=== PATIENT | male | born 1975 | race Caucasian/White ===

== ENCOUNTER 2020-09-17 10:38 | Emergency (ER) | payer OTHER ==
--- NOTE | 2020-09-17 11:49 | RAD REPORT ---
EXAM DESCRIPTION: RAD - Knee Right 3 View - 09/17/2020 11:06 am CLINICAL HISTORY: PAIN, fall COMPARISON: No comparisonsdelete select FINDINGS: No fracture, dislocation or periosteal reaction.No joint effusion seen. No joint space jasson rowing. Small bone density near the quadriceps attachment to the patella is not an acute finding. IMPRESSION: Negative right knee for acute bone or joint finding. Clinical concerns for internal derangement or occult bony injury could be further assessed with MR im aging.
--- NOTE | 2020-09-17 12:15 | ER ---
Nurse's Notes [facility] Name: Pankaj Castaneda Age: 45 yrs Sex: Male : 1975 Arrival Date: 09/17/2020 Time: 10:40 Bed 24 Private MD: Diagnosis: Pain in right knee Presentation: 09/17 10:40 Chief complaint: Patient states: fell going up some stairs and hit knee right on the aa5 edge of the step. Pt c/o right knee pain. 10:40 Coronavirus screen: At this time, the client does not indicate any symptoms associated aa5 with coronavirus-19. Ebola Screen: Patient negative for fever greater than or equal to 101.5 degrees Fahrenheit, and additional compatible Ebola Virus Disease symptoms. Initial Sepsis Screen: Does the patient meet any 2 criteria? No. Patient's initial sepsis screen is negative. Does the patient have a suspected source of infection? No. Patient's initial sepsis screen is negative. Risk Assessment: Do you want to hurt yourself or someone else? Patient reports no desire to harm self or others. Onset of symptoms was September 17, 2020. 10:40 Acuity: STEPH 4 aa5 10:40 Method Of Arrival: EMS: [facility] aa5 Historical: - Allergies: 10:40 Iodine; aa5 10:40 SHELLFISH; aa5 10:40 Narcotics (Combative); aa5 - PMHx: 10:40 Previous drug use; aa5 - PSHx: 10:40 Hernia repair; aa5 - Immunization history:: Adult Immunizations unknown. - Social history:: Smoking status: Patient denies any tobacco usage or history of. Screenin:40 Abuse screen: Denies threats or abuse. Nutritional screening: No deficits noted. aa5 Tuberculosis screening: No symptoms or risk factors identified. 10:40 Fall Risk None identified. aa5 Assessment: 10:40 General: Appears comfortable, Behavior is calm, cooperative. Pain: Complains of pain in aa5 right knee Pain currently is 6 out of 10 on a pain scale. Quality of pain is described as sharp, Pain began post fall today Is continuous, Aggravated by repositioning. Neuro: Level of Consciousness is awake, alert, obeys commands, Oriented to person, place, time, situation. Cardiovascular: Patient's skin is warm and dry. Respiratory: Airway is patent Respiratory effort is even, unlabored, Respiratory pattern is regular, symmetrical. GI: Abdomen is obese. : No signs and/or symptoms were reported regarding the genitourinary system. EENT: No signs and/or symptoms were reported regarding the EENT system. Derm: Skin is pink, warm \T\ dry. Musculoskeletal: Reports pain in right knee. Vital Signs: 10:40 BP 153 / 108; Pulse 77; Resp 16 S; Temp 98.2(TE); Pulse Ox 96% on R/A; aa5 ED Course: 10:40 Patient arrived in ED. aa5 10:40 Arm band placed on. aa5 10:40 Patient has correct armband on for positive identification. Bed in low position. Call aa5 light in reach. Side rails up X2. Pulse ox on. NIBP on. 10:41 Mahnaz Welch FNP-C is PHCP. kb 10:41 Antonio Power MD is Attending Physician. kb 10:[address], RN is Primary Nurse. aa5 11:06 Knee Right 3 View XRAY In Process Unspecified. EDMS 11:53 Triage completed. aa5 12:42 No provider procedures requiring assistance completed. Patient did not have IV access zb during this emergency room visit. 12:44 Primary Nurse role handed off by Joie Lane RN zb 12:44 Joie Hobson, DESTINEE is Primary Nurse. zb Administered Medications: 10:43 Not Given (Patient Refused): Ibuprofen 800 mg PO once aa5 Outcome: 12:15 Discharge ordered by MD. kb 12:43 Discharged to home with crutches. zb 12:43 Condition: stable 12:43 Discharge instructions given to patient, Instructed on discharge instructions, follow up and referral plans. medication usage, Demonstrated understanding of instructions, follow-up care, medications, Prescriptions given X 1. 12:44 Patient left the ED. zb Signatures: Dispatcher [employer] EDNH Mahnaz Welch FNP-C FNP-Joie Ware RN RN aa5 Brown, Zipporah, RN RN zb
--- NOTE | 2020-09-17 12:15 | EDPHYS ---
Physician Documentation [facility] Name: Pankaj Castaneda Age: 45 yrs Sex: Male : 1975 Arrival Date: 09/17/2020 Time: 10:40 Bed 24 Private MD: ED Physician Antonio Power HPI: 09/17 14:51 This 45 yrs old Male presents to ER via EMS with complaints of Knee Pain. kb 14:51 The patient presents with decreased range of motion, an injury, pain, swelling, kb tenderness. The complaints affect the right knee. Context: The problem was sustained outdoors, resulted from the patient falling, the patient is not able to bear weight, the patient is not able to ambulate, Problem is a result from a previous injury: No. Onset: The symptoms/episode began/occurred today. Modifying factors: The symptoms are alleviated by nothing. the symptoms are aggravated by movement, weight bearing, bending knee. Associated signs and symptoms: Pertinent positives: swelling, Pertinent negatives calf tenderness, fever, nausea, numbness, rash, tingling, vomiting, warmth, weakness. Treatment prior to arrival includes: no previous treatment. Severity of symptoms: At their worst the symptoms were moderate, in the emergency department the symptoms are unchanged. The patient has not experienced similar symptoms in the past. The patient has not recently seen a physician. Pt fell on a dock and knee hit an edge causing pain to knee. Historical: - Allergies: 10:40 Iodine; aa5 10:40 SHELLFISH; aa5 10:40 Narcotics (Combative); aa5 - PMHx: 10:40 Previous drug use; aa5 - PSHx: 10:40 Hernia repair; aa5 - Immunization history:: Adult Immunizations unknown. - Social history:: Smoking status: Patient denies any tobacco usage or history of. ROS: 14:49 Constitutional: Negative for fever, chills, and weight loss, Respiratory: Negative for kb shortness of breath, cough, wheezing, and pleuritic chest pain, Skin: Negative for injury, rash, and discoloration, Neuro: Negative for headache, weakness, numbness, tingling, and seizure. 14:49 MS/extremity: Positive for contusion, decreased range of motion, pain, swelling, tenderness, of the right knee. Exam: 14:49 Constitutional: This is a well developed, well nourished patient who is awake, alert, kb and in no acute distress. Head/Face: Normocephalic, atraumatic. Respiratory: Respirations even and unlabored. No increased work of breathing, no retractions or nasal flaring. Skin: Warm, dry with normal turgor. Normal color. Neuro: Awake and alert, GCS 15, oriented to person, place, time, and situation. Moves all extremities. Normal gait. 14:49 Musculoskeletal/extremity: Extremities: grossly normal except: noted in the right knee: decreased ROM, pain, swelling, tenderness, ROM: limited active range of motion, in the right knee, limited active range of motion due to pain, in the right knee, Circulation is intact in all extremities. Sensation intact. Weight bearing: is unable to bear weight. Vital Signs: 10:40 BP 153 / 108; Pulse 77; Resp 16 S; Temp 98.2(TE); Pulse Ox 96% on R/A; aa5 MDM: 10:41 Patient medically screened. kb 12:08 Data reviewed: vital signs, nurses notes. Data interpreted: Pulse oximetry: on room air kb is 96 %. Interpretation: normal. Counseling: I had a detailed discussion with the patient and/or guardian regarding: the historical points, exam findings, and any diagnostic results supporting the discharge/admit diagnosis, radiology results, the need for outpatient follow up, a orthopedic surgeon, to return to the emergency department if symptoms worsen or persist or if there are any questions or concerns that arise at home. 09/17 10:42 Order name: Knee Right 3 View XRAY; Complete Time: 11:49 kb 09/17 12:14 Order name: Knee Immobilizer; Complete Time: 12:44 kb 09/17 12:14 Order name: Crutches; Complete Time: 12:44 kb Administered Medications: 10:43 Not Given (Patient Refused): Ibuprofen 800 mg PO once aa5 Disposition: 09/18 08:29 Co-signature as Attending Physician, Antonio Power MD I agree with the assessment and allegra plan of care. Disposition: 09/17/20 12:15 Discharged to Home. Impression: Pain in right knee. - Condition is Stable. - Discharge Instructions: Musculoskeletal Pain, Knee Pain, [id number]. - Prescriptions for Diclofenac Sodium 75 mg Oral Tablet Sustained Release - take 1 tablet by ORAL route 2 times per day; 30 tablet. - Medication Reconciliation Form, Thank You Letter, Antibiotic Education, Prescription Opioid Use form. - Follow up: Emergency Department; When: As needed; Reason: Worsening of condition. Follow up: Private Physician; When: 2 - 3 days; Reason: Recheck today's complaints, Continuance of care, Re-evaluation by your physician. Signatures: Dispatcher [employer] EDMahnaz Dangelo, LEASING COORDINATOR-C LEASING COORDINATOR-Deob Antonio Power MD MD cha Calderon, Audri, RN RN aa5 Joie Hobson RN RN zb Corrections: (The following items were deleted from the chart) 09/17 12:44 12:15 09/17/2020 12:15 Discharged to Home. Impression: Pain in right knee. Condition is zb Stable. Forms are Medication Reconciliation Form, Thank You Letter, Antibiotic Education, Prescription Opioid Use. Follow up: Emergency Department; When: As needed; Reason: Worsening of condition. Follow up: Private Physician; When: 2 - 3 days; Reason: Recheck today's complaints, Continuance of care, Re-evaluation by your physician. kb
[2020-09-17 12:53] VITALS: BP 153/108; TEMP 98.2; O2SAT 96
== END 2020-09-17 12:44 | disposition home or self-care (01) ==
LOC: ER 10:38
DX: M25.561 Pain in right knee (principal); W19.XXXA Unspecified fall, initial encounter
CPT/HCPCS: 99284